=== PATIENT | male | born 1990 | race Asian ===

== ENCOUNTER 2018-04-05 | Emergency (ER) | payer OTHER | END 2018-04-06 01:05 | disposition home or self-care (01) | DX: S39.012A Strain of muscle, fascia and tendon of lower back, initial encounter (principal); S06.0X9A Concussion with loss of consciousness of unspecified duration, initial encounter; R40.2412 Glasgow coma scale score 13-15, at arrival to emergency department; V13.4XXA Pedal cycle driver injured in collision with car, pick-up truck or van in traffic accident, initial encounter; Y93.55 Activity, bike riding; Y92.410 Unspecified street and highway as the place of occurrence of the external cause; Y99.8 Other external cause status; Z23 Encounter for immunization ==